=== PATIENT | male | born 1980 | race Caucasian/White ===

== ENCOUNTER 2023-06-04 06:18 | Outpatient (CLI) | payer OTHER, SELFPAY ==
--- NOTE | 2023-06-30 11:05 | WPDSLEEPSTUD ---
Sleep Study Date of Study: 06/04/23 Ordering Provider: Chirag Roque MD Interpreting Physician: Emilee Gan MD Sleep Study Type: Split Polysomnogram Height: 1.8 m Weight: 129.727 kg Body Mass Index: 39.9 Neck Circumference (inches): 19 [place]: 10 Reason for Sleep Study Snoring, excessive daytime sleeping Sleep History Duke Swann Is a 42-year-old man with diabetes mellitus, asthma and acid reflux who occasionally awakens from sleep feeling short of breath. There is a family history of obstructive sleep apnea in both parents.He frequently awakens at night with heartburn symptoms. He always snores and frequently is loud enough that others complain. He frequently has difficulty sleeping with a cold. He rarely gasp for breath at night. He frequently has breathing problems at night observed by others. Occasionally he sweats excessively at night. He never notices his heart pounding or beating irregularly at night. He occasionally falls asleep during the day, rarely falls asleep involuntarily rarely falls asleep while driving. He never has loss of muscle tone with strong emotion. He frequently has daytime difficulties due to excessive sleepiness. He does not feel paralyzed on waking or falling asleep. He frequently has vivid dreamlike scenes on waking falling asleep. He never feels afraid to go to sleep. He frequently has nightmares. He frequently remembers his dreams. He frequently has racing thoughts. He does not feel sad or depressed. He occasionally has anxiety. He does not have muscular tension. He always notices parts of his body jerking, he always kicks at night and frequently has crawling and aching feelings in his legs at night. He always has leg pain at night. He does not have morning jaw pain. He frequently grinds his teeth during sleep. He occasionally is bothered by pain during the day and awakened by pain at night. He frequently wakes up feeling sore and stiff in the morning with pain in the neck and spine. Normal bedtime is variable, as he works swing shifts. It takes him about an hour to fall asleep. He wakes up 0-1 times at night. While awake he looks at his telephone. His morning wake time also varies. On weekends he goes to bed at 11:00 p.m. and wakes between 6 and 7:00 a.m.. He estimates getting 5 hours of sleep at night. Habits: Tobacco daily. Alcohol occasionally. No recreational substances. [facility], [facility] Past Medical History Medical History BMI 39.0-39.9,adult Diabetes type 2, uncontrolled Morbid (severe) obesity due to excess calories Sleep apnea, unspecified Type 2 diabetes mellitus with complication, without long-term current use of insulin Family History Family History Father Hypertension Diabetes mellitus Asthma Scoliosis Tobacco chew use Mother Aneurysm Heart disease Sibling No problems noted. Other Family history of coronary artery disease Family history of malignant neoplasm of breast Family history of malignant neoplasm of esophagus Social History Social History Smoking packs per day: 1 Smoking cigarettes per day: 20.0 Years smoked: 20 Smoking pack-years: 20.00 Smoking status: Current every day smoker Tobacco type: e-cigarettes/vaping Second hand tobacco smoke exposure: No Smoking end date: 12/30/20 Alcohol intake: current Alcohol use details: occasionally Substance use: never Substance use type: does not use Lack of Transportation: No Lack of Food: Never True Current Housing: I Have Housing Concerned About Future Housing: No Difficulty Paying Gas/Electric Bills: No Difficulty Paying for Meds: No Currently Unemployed: No Education: Trade/Vocational Certificate Difficulty w/ Childcare or Family Care: No Living arrangements: with family Occup
[2023-06-30 11:31] VITALS: BMI 39.9
== END 2023-06-05 07:22 | disposition home or self-care (01) ==
PROVIDERS: PCP Family Medicine; Visit Provider Family Medicine
DX: E11.65 Type 2 diabetes mellitus with hyperglycemia (principal)
CPT/HCPCS: 95811

== ENCOUNTER 2023-12-10 00:50 | Day surgery (SDC) | payer OTHER, SELFPAY ==
[2023-11-16 10:41] VITALS: BMI 36.6
--- NOTE | 2023-12-08 11:23 | SUR.PREOP ---
Patient called regarding upcoming procedure. Reviewed preop instructions, appointment times, and procedure prep.
[2023-12-10 09:20] VITALS: BP 124/85; PULSE 77; RESP 16; TEMP 36.8; O2SAT 98
[2023-12-10] MEDS: LACTATED RINGERS 1,000 ML 150 ML IV CONT (09:31)
[2023-12-10 09:32] LABS: Glucose Point of Care 174 mg/dl (65-105)
--- NOTE | 2023-12-10 10:51 | WPDANESEPPF ---
Anes - Initial Pre Proc Eval Procedure: Operation Date: 12/10/23 10:30 Proposed Procedures p Screening Colonoscopy - Zach Manuel MD Date/Time: 12/10/23 10:51 Surgeon: Zach Manuel MD Pre Op Diagnosis: neoplasm screening Patient Data Age: 43 Gender: M Height: 1.83 m Weight: 118.2 kg Last Vital Signs Temp 98.2 F 12/10/23 09:20 Pulse 77 12/10/23 09:20 Resp 16 12/10/23 09:20 BP 124/85 12/10/23 09:20 Pulse Ox 98 12/10/23 09:20 O2 Del Method Room Air 12/10/23 09:20 Allergies Allergy/AdvReac Type Severity Reaction Status Date / Time amoxicillin Allergy Unknown rash Verified 12/10/23 09:17 Home Medications Medication Instructions Recorded Confirmed Type albuterol sulfate 90 mcg/actuation 2 puff inhalation Q4H PRN 12/03/22 12/10/23 Rx aerosol inhaler (Ventolin HFA) shortness of breath or wheezing #8.5 grams albuterol sulfate 2.5 mg/3 mL 2.5 mg (3 mL) inhalation Q4-6H PRN 12/04/22 12/10/23 Rx (0.083 %) solution for nebulization shortness of breath or wheezing #75 mL blood-glucose meter,continuous #1 ea 06/21/23 12/10/23 Rx (Dexcom G6 Marketing Rotation Associate) empagliflozin 25 mg tablet 25 mg PO DAILY #90 tabs 07/30/23 12/10/23 Rx (Jardiance) lisinopril 2.5 mg tablet 2.5 mg PO DAILY #90 tabs 07/30/23 12/10/23 Rx metformin 500 mg tablet,extended 2,000 mg PO DAILY #360 tabs 07/30/23 12/10/23 Rx release 24 hr testosterone 1 pump topical DAILY #75 grams 08/23/23 12/10/23 Rx dulaglutide 1.5 mg/0.5 mL 1.5 mg (0.5 mL) subcut WEEKLY #2 mL 09/06/23 12/10/23 Rx subcutaneous pen injector (Trulicity) rosuvastatin 20 mg tablet 20 mg PO DAILY #30 tabs 10/06/23 12/10/23 Rx blood-glucose transmitter (Dexcom #1 ea 10/13/23 12/10/23 Rx G6 Transmitter device) blood-glucose sensor (Dexcom G6 #3 ea 11/04/23 12/10/23 Rx Sensor device) omeprazole 20 mg capsule,delayed See Rx Instructions .Route 11/24/23 12/10/23 Rx release .COMPLEX #30 caps dulaglutide 0.75 mg/0.5 mL 0.75 mg (0.5 mL) subcut WEEKLY #2 12/06/23 12/10/23 Rx subcutaneous pen injector mL (Trulicity) Laboratory Tests 12/10/23 09:28 POC Capillary Glucose 174 H mg/dl (65-105) Patient hx anesthesia problems: none Family hx anesthesia problems: none Results Review: All pre-operative results and documents have been reviewed as part of the pre-operative evaluation. [facility] Past Medical History Medical History BMI 39.0-39.9,adult Constipation Diabetes type 2, uncontrolled Morbid (severe) obesity due to excess calories Screen for colon cancer Sleep apnea, unspecified Type 2 diabetes mellitus with complication, without long-term current use of insulin Family History Family History Father Hypertension Diabetes mellitus Asthma Scoliosis Tobacco chew use Mother Aneurysm Heart disease Sibling No problems noted. Other Family history of coronary artery disease Family history of malignant neoplasm of breast Family history of malignant neoplasm of esophagus Social History Social History Smoking packs per day: 1 Smoking cigarettes per day: 20.0 Years smoked: 20 Smoking pack-years: 20.00 Smoking status: Current every day smoker Tobacco type: e-cigarettes/vaping Second hand tobacco smoke exposure: No Smoking end date: 12/30/20 Alcohol intake: current Alcohol use details: Rarely Substance use: never Substance use type: does not use Do You Feel Safe in your Home?: Yes Lack of Transportation: No Lack of Food: Never True Current Housing: I Have Housing Concerned About Future Housing: No Difficulty Paying Gas/Electric Bills: No Difficulty Paying for Meds: No Currently Unemployed: No Education: Trade/Vocational Certificate Difficulty w/ Childcare or
--- NOTE | 2023-12-10 10:56 | PM.HPGS ---
History of Present Illness History of Present Illness Consent: Risks, benefits, and alternatives have been discussed and questions answered. Patient agrees to proceed with procedure. Chief complaint: neoplasm screening Narrative: Duke Swann is a 43 year old male here for first screening colonoscopy Review of Systems Constitutional: Constitutional: Denies headache(s) and Denies weakness Eyes: Eyes: Denies blurry vision ENT: Reports Normal hearing present, Denies headache(s) and Denies neck pain Cardiovascular: Cardiovascular: Denies chest pain and Denies dyspnea Respiratory: Respiratory: Denies dyspnea Gastrointestinal: Gastrointestinal: Reports no additional gastrointestinal complaints Genitourinary: Genitourinary: Denies dysuria Musculoskeletal: Musculoskeletal: Denies neck pain Integumentary/Breasts: Skin/Breast: Denies dry skin Neurologic: Reports Normal hearing present, Denies headache(s) and Denies weakness Psychiatric: Psychiatric: Denies anxiety Endocrine: Endocrine: Denies change in body appearance Hematologic/Lymphatic: Hematologic/Lymphatic: Denies easy bleeding Allergic/Immunologic: Allergic/Immunologic: Denies urticaria PMFSH Past Medical History Medical History BMI 39.0-39.9,adult Constipation Diabetes type 2, uncontrolled Morbid (severe) obesity due to excess calories Screen for colon cancer Sleep apnea, unspecified Type 2 diabetes mellitus with complication, without long-term current use of insulin Family History Family History Father Hypertension Diabetes mellitus Asthma Scoliosis Tobacco chew use Mother Aneurysm Heart disease Sibling No problems noted. Other Family history of coronary artery disease Family history of malignant neoplasm of breast Family history of malignant neoplasm of esophagus Social History Social History Smoking packs per day: 1 Smoking cigarettes per day: 20.0 Years smoked: 20 Smoking pack-years: 20.00 Smoking status: Current every day smoker Tobacco type: e-cigarettes/vaping Second hand tobacco smoke exposure: No Smoking end date: 12/30/20 Alcohol intake: current Alcohol use details: Rarely Substance use: never Substance use type: does not use Do You Feel Safe in your Home?: Yes Lack of Transportation: No Lack of Food: Never True Current Housing: I Have Housing Concerned About Future Housing: No Difficulty Paying Gas/Electric Bills: No Difficulty Paying for Meds: No Currently Unemployed: No Education: Trade/Vocational Certificate Difficulty w/ Childcare or Family Care: No Living arrangements: with family Occupation/Education: occupation Additional occupation/education comments: [employer] Gender identity (if verbalized by the patient): Male Meds Home Medications and Allergies Home Medications Medication Instructions Recorded Confirmed Type albuterol sulfate 90 mcg/actuation 2 puff inhalation Q4H PRN 12/03/22 12/10/23 Rx aerosol inhaler (Ventolin HFA) shortness of breath or wheezing #8.5 grams albuterol sulfate 2.5 mg/3 mL 2.5 mg (3 mL) inhalation Q4-6H PRN 12/04/22 12/10/23 Rx (0.083 %) solution for nebulization shortness of breath or wheezing #75 mL blood-glucose meter,continuous #1 ea 06/21/23 12/10/23 Rx (Dexcom G6 Qa Software Test Engineer) empagliflozin 25 mg tablet 25 mg PO DAILY #90 tabs 07/30/23 12/10/23 Rx (Jardiance) lisinopril 2.5 mg tablet 2.5 mg PO DAILY #90 tabs 07/30/23 12/10/23 Rx metformin 500 mg tablet,extended 2,000 mg PO DAILY #360 tabs 07/30/23 12/10/23 Rx release 24 hr testosterone 1 pump topical DAILY #75 grams 08/23/23 12/10/23 Rx dulaglutide 1.5 mg/0.5 mL 1.5 mg (0.5 mL) subcut WEEKLY #2 mL 09/06/23 12/10/23 Rx subcutaneous pen injector (Trulicity) rosuvastatin
[2023-12-10 11:15] VITALS: BP 130/81; PULSE 77; RESP 19; O2SAT 98
[2023-12-10 11:25] VITALS: BP 133/76; PULSE 73; RESP 24; O2SAT 98
[2023-12-10 11:35] VITALS: BP 130/87; PULSE 72; RESP 20; O2SAT 98
== END 2023-12-10 11:42 | disposition home or self-care (01) ==
PROVIDERS: PCP Family Medicine; Visit Provider Internal Medicine Gastroenterology
PROC: 0DJD8ZZ Inspection of Lower Intestinal Tract, Via Natural or Artificial Opening Endoscopic (ICD-10-PCS; CPT 45378; principal; 2023-12-10 10:30)
DX: Z12.11 Encounter for screening for malignant neoplasm of colon (principal); K64.8 Other hemorrhoids; E11.9 Type 2 diabetes mellitus without complications; G47.30 Sleep apnea, unspecified; E66.9 Obesity, unspecified; Z68.35 Body mass index [BMI] 35.0-35.9, adult; Z79.84 Long term (current) use of oral hypoglycemic drugs; Z79.51 Long term (current) use of inhaled steroids; Z79.85 Long-term (current) use of injectable non-insulin antidiabetic drugs; F17.290 Nicotine dependence, other tobacco product, uncomplicated
CPT/HCPCS: 45378; 82948; J2704; J7120

== ENCOUNTER 2024-11-11 08:19 | Outpatient (CLI) | payer OTHER, SELFPAY ==
--- NOTE | ~2024-11-11 | US_ITS ---
Ultrasound of the upper back CLINICAL HISTORY: Mass TECHNIQUE: Sonographic imaging of the area of palpable concern at the left back/shoulder blade area d emonstrates a 2.8 x 2.9 x 1.7 cm irregular hypoechoic mass. IMPRESSION: Irregular 2.8 x 2.9 x 1.7 cm hypoechoic mass at the area of palpable concern. This lesion is sonograp hically indeterminate. Large sebaceous cyst is a potential consideration with suggestion of possible tract extending towards the skin surface. Pre and postcontrast MR recommended to attempt to best furt her characterize the lesion. Reviewed, dictated and finalized at location M. SITTER IMPRESSION: Irregular 2.8 x 2.9 x 1.7 cm hypoechoic mass at the area of palpable concern. T his lesion is sonographically indeterminate. Large sebaceous cyst is a potentia l consideration with suggestion of possible tract extending towards the skin niño rface. Pre and postcontrast MR recommended to attempt to best further character ize the lesion.
== END 2024-11-11 08:20 | disposition home or self-care (01) ==
LOC: MICIMG 08:19
PROVIDERS: PCP Family Medicine; Visit Provider Nurse Practitioner Adult Health
DX: R22.2 Localized swelling, mass and lump, trunk (principal)
CPT/HCPCS: 76604

== ENCOUNTER 2024-12-10 10:08 | Outpatient (CLI) | payer OTHER, SELFPAY ==
--- NOTE | ~2024-12-10 | MR_ITS ---
EXAMINATION: MR scapula LT wo/w con DATE: 12/10/2024 11:44 INDICATION: Localized swelling, mass or lump at the left scapula TECHNIQUE: Magnetic resonance imaging (MRI) of the left scapula was performed without and with 15 mL Multihance intravenous contrast. A marker was placed over the mass. Sequences included axial, sagitt al and coronal T1-weighted FSE and fluid sensitive FSE STIR, axial T1-weighted FS FSE, coronal T1-ren ghted FSE, coronal T2-weighted FS FSE, sagittal T1-weighted FSE and post contrast axial, sagittal and coronal T1-weighted FS FSE. COMPARISON: Ultrasound dated 11/11/2024 FINDINGS: There is an ill-defined spiculated pattern of edema and enhancement involving the subcutaneous fat al fady the margins of an approximately 1.8 x 1.7 x 1.4 cm thick-walled centrally cavitary nodule overlyi ng the superomedial margin of the left scapula. There appears to be a small extension of the 11 x 9 x 7 mm central T2 hyperintense nonenhancing fluid into the dermis which suggests the tract of a epider moid/sebaceous surrounding wall which measures from 1.5 up to 4-5 mm in maximal thickness. No other a bnormally enhancing lesions identified. There are couple normal-sized left axillary lymph nodes with very thin peripheral cortices surroundin g large central fatty darline. No pathologically enlarged lymph nodes identified. 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 There is partial thickness cartilage loss along the posterior glenoid with likely chronic posterior labral degeneration which is been largely replaced by small marginal osteophytes along the posterior rim of the glenoid. Moderate supraspinatus and infraspinatus tendinopathy without discrete tear. No joint effusions or subacromia l/subdeltoid bursitis. IMPRESSION: 1. 1.8 x 1.7 x 1.4 cm complex cystic subcutaneous lesion superficial to the superomedial left scapula with thickened enhancing wall and suggestion of a tract extending towards the skin surface. Differen tial would include a draining abscess, chronically infected epidermoid/sebaceous cyst or centrally ne crotic malignancy either primary or metastatic. Reviewed, dictated and finalized at location B. [employer] IMPRESSION: 1. 1.8 x 1.7 x 1.4 cm complex cystic subcutaneous lesion superficial to the sup eromedial left scapula with thickened enhancing wall and suggestion of a tract extending towards the skin surface. Differential would include a draining absce ss, chronically infected epidermoid/sebaceous cyst or centrally necrotic malign keagan either primary or metastatic.
== END 2024-12-10 10:09 | disposition home or self-care (01) ==
LOC: ANHIMG 10:11
PROVIDERS: PCP Family Medicine; Visit Provider Nurse Practitioner Adult Health
DX: R22.2 Localized swelling, mass and lump, trunk (principal)
CPT/HCPCS: 73220; A9577